=== PATIENT | male | born 1990 | race African-American/Black ===

== ENCOUNTER 2022-12-07 12:32 | Emergency (ER) | payer MEDICAID, OTHER ==
[~2022-12-07] VITALS: Ht 190.5 cm; Wt 85.1 kg
[2022-12-07 13:17] VITALS: BP 112/64
[2022-12-07] MEDS ORDERED: IBUP-1456 PO (14:30)
== END 2022-12-07 14:34 | disposition home or self-care (01) ==
LOC: ER 12:32
DX: S53.402A Unspecified sprain of left elbow, initial encounter (principal); X50.1XXA Overexertion from prolonged static or awkward postures, initial encounter; Y93.89 Activity, other specified; Y92.89 Other specified places as the place of occurrence of the external cause; Y99.8 Other external cause status
CPT/HCPCS: 73080